=== PATIENT | male | born 1995 | race Caucasian/White ===

== ENCOUNTER 2016-08-26 13:33 | Emergency (ER) | payer BC, OTHER ==
[~2016-08-26] VITALS: Ht 188 cm; Wt 85.9 kg
[2016-08-26 13:35] VITALS: TEMP 37; Ht 188 cm; Wt 85.9 kg
[2016-08-26] MEDS ORDERED: AMPICILLIN/SULBACTAM SOD INJ 3,000 MG in SODIUM CHLORIDE 0.9% 100ML 100 ML IV ONE (14:00)
--- NOTE | 2016-08-26 14:33 | EMERGENCY ROOM VISIT NOTE ---
History Report prepared by Regis: Lindsey Loaiza Under the Supervision of: Dr. Eris Muller M.D. First contact with patient: 13:48 Chief Complaint: OTHER COMPLAINT Stated Complaint: POTENTIAL LYMPHANGITIS History of Present Illness The patient is a 21 year old male who presents to the Emergency Room with complaints of worsening red streaks to his right arm. The patient initially noticed two red spots on his right wrist last week and he was suspicious that they were bug bites. 4 days ago, he developed red streaks that have been extending up his right arm. When he first noticed the bites he felt some irritation to the area but has not had any pain for thh past several days. The patient noticed the bites while he was on spring break in [place]. He does not recall getting bit by anything, but notes that people were complaining of bed bugs on the hotel reviews online. 5 days ago when he was about to come home, he developed watery diarrhea, which is improving. He notes that his bowel movements are almost back to normal. One of his friends who was on the trip with him also had diarrhea. Denies fevers, chills, or other complaints. Source of History: patient Onset: last week Position: arm (right) Quality: other (red streaks) Timing: worsening Associated Symptoms: + diarrhea, No chills, No fevers Review of Systems See HPI for pertinent positives & negatives. A total of 10 systems reviewed and were otherwise negative. Past Medical & Surgical Medical Problems: (1) Conjunctivitis (2) Corneal abrasion Family History No pertinent family history stated. Social History Smoking Status: Never Smoker Alcohol Use: occasionally Marital Status: single Occupation Status: [employer] student Current/Historical Medications Scheduled Amoxicillin & Pot Clavulanate (Augmentin 875-125 mg), 875 MG PO BID Allergies Coded Allergies: No Known Allergies (Unverified , 08/26/16) Physical Exam Vital Signs Date Time Temp Pulse Resp B/P Pulse Ox O2 Delivery O2 Flow Rate FiO2 08/26/16 15:55 61 18 122/81 97 08/26/16 13:35 37.0 90 16 135/74 97 Room Air Physical Exam GENERAL: Patient is in no acute distress. HEENT: No acute trauma, normocephalic atraumatic, mucous membranes moist, no nasal congestion, no scleral icterus. NECK: No stridor, no adenopathy, no meningismus, trachea is midline. LUNGS: Clear to auscultation bilaterally, no wheeze, no rhonchi, breath sounds equal. HEART: Without murmurs gallops or rubs, regular rate and rhythm. ABDOMEN: Soft, nontender, bowel sounds positive, no hernias, no peritonitis. EXTREMITIES: No cyanosis or edema, full range of motion of all the joints without pain or difficulty, no signs for acute trauma. NEUROLOGIC: Oriented x 3, no acute motor or sensory deficits, no focal weakness. SKIN: He has puncture wounds consistent with possible insect bites to the right volar wrist with red streaking up to the elbow consistent with lymphangitis. Medical Decision & Procedures Laboratory Results 08/26/16 14:05 Red Blood Count 5.28, Mean Corpuscular Volume 83.0, Mean Corpuscular Hemoglobin 29.9, Mean Corpuscular Hemoglobin Concent 36.1, Mean Platelet Volume 9.2, Neutrophils (%) (Auto) 69.4, Lymphocytes (%) (Auto) 18.0, Monocytes (%) (Auto) 7.1, Eosinophils (%) (Auto) 4.5, Basophils (%) (Auto) 1.0, Neutrophils # (Auto) 4.19, Lymphocytes # (Auto) 1.09, Monocytes # (Auto) 0.43, Eosinophils # (Auto) 0.27, Basophils # (Auto) 0.06 08/26/16 14:05 Test 08/26/16 14:05 White Blood Count 6.04 K/uL (4.8-10.8) Red Blood Count 5.28 M/uL (4.7-6.1) Hemoglobin 15.8 g/dL (14.0-18.0) Hematocrit 43.8 % (42-52) Mean Corpuscular Volume 83.0 fL (80-100) Mean Corpuscular Hemoglobin 29.9 pg (25-34) Mean Corpuscular Hemoglobin Concent 36.1 g/dl (32-36) Platelet Count 185 K/uL (130-400) Mean Platelet Volume 9.2 fL (7.4-10.4) Neutrophils (%) (Auto) 69.4 % Lymphocytes (%) (Auto) 18.0 % Monocytes (%) (Auto) 7.1 % Eosinophils (%) (Auto) 4.5 % Basophils (%) (Auto) 1.0 % Neutrophils # (Auto) 4.19 K/uL (1.4-6.5) Lymphocytes # (Auto) 1.09 K/uL (1.2-3.4) Monocytes # (Auto) 0.43 K/uL (0.11-0.59) Eosinophils # (Auto) 0.27 K/uL (0-0.5) Basophils # (Auto) 0.06 K/uL (0-0.2) RDW Standard Deviation 37.7 fL (36.4-46.3) RDW Coefficient of Variation 12.6 % (11.5-14.5) Immature Granulocyte % (Auto) 0.0 % Immature Granulocyte # (Auto) 0.00 K/uL (0.00-0.02) Anion Gap 7.0 mmol/L (3-11) Est Creatinine Clear Calc Drug Dose 136.4 ml/min Estimated GFR () 125.4 Estimated GFR (Non- 108.2 BUN/Creatinine Ratio 13.1 (10-20) Calcium Level 8.9 mg/dl (8.5-10.1) Lyme Disease IgG Antibody NEG (NEG) Laboratory results reviewed by me. Medications Administered Medications (Trade) Dose Ordered Sig/Mariana Route Start Time Stop Time Status Last Admin Dose Admin Ampicillin Sodium/ Sulbactam Sodium/ Sodium Chloride (Unasyn Inj/Nss 100ml) 108 ml @ 200 mls/hr ONE ONCE IV 08/26/16 14:00 08/26/16 14:32 DC 08/26/16 14:39 200 MLS/HR ED Course 1349: The patient was evaluated in room B6. A complete history and physical exam was performed. 1400: Ordered Ampicillin Sodium/Sulbactam Sodium 3000 mg/NSS 108 ml @ 200 mls/ hr IV. Medical Decision Differential includes but is not limited to cellulitis, insect bite, lymphangitis, lyme disease, bacteremia. The patient presents with some possible bites on his right wrist. He has some red streaking on his arm that he has noticed. He has no pain, no fever or chills. He was referred here because of the red streaks. He just returned from [place]. The patient was in no distress. Laboratory testing returned showing no leukocytosis, anemia or significant electrolyte abnormality. There was no kidney failure. Blood cultures are pending. Lyme disease testing was equivocal. The patient received IV Unasyn. He is being discharged on Augmentin. He does appear to have a lymphangitis. He can be called back with any positive backup Lyme disease testing. He can follow up for a recheck of his arm in a few days and can return here for worsening symptoms. Impression Primary Impression: Lymphangitis Scribe Attestation The scribe's documentation has been prepared under my direction and personally reviewed by me in its entirety. I confirm that the note above accurately reflects all work, treatment, procedures, and medical decision making performed by me. Departure Information Dispostion Home / Self-Care Prescriptions Amoxicillin & Pot Clavulanate (Augmentin 875-125 mg) 1 Tab Tab 875 MG PO BID for 10 Days, #20 TAB Prov: Eris Muller M.D. 08/26/16 Referrals No Doctor, Assigned (PCP) Patient Instructions My [facility] Additional Instructions augmentin 2x per day for 10 days return for fever or chills return if worsening return here or see outpatient center for a recheck in 48 hours lab testing was ok today
[2016-08-26 14:41] LABS: BASO ABS # 0.06 K/uL (0-0.2); COMPLETE YES; EOS % 4.5 %; HEMATOCRIT 43.8 % (42-52); LYMPH ABS # 1.09 K/uL (1.2-3.4); MEAN CORPUSCULAR HEMOGLOBIN 29.9 pg (25-34); MEAN CORPUSCULAR HGB CONC 36.1 g/dl (32-36); MEAN PLATELET VOLUME 9.2 fL (7.4-10.4); MONO % 7.1 %; NEUT % 69.4 %; PLATELET COUNT 185 K/uL (130-400); RED BLOOD COUNT 5.28 M/uL (4.7-6.1); WHITE BLOOD COUNT 6.04 K/uL (4.8-10.8)
[2016-08-26 15:03] LABS: BUN/CREATININE RATIO 13.1 (10-20); CALCIUM 8.9 mg/dl (8.5-10.1); CREATININE 0.98 mg/dl (0.60-1.40); POTASSIUM 3.7 mmol/L (3.5-5.1)
[2016-08-26] MEDS ORDERED: AMOX875T PO (15:28)
[2016-08-26 15:42] LABS: LYME DISEASE AB IGG NEG (NEG); LYME DISEASE AB IGM EQUIVOCAL (NEG)
[2016-08-26 15:55] VITALS: BP 122/81; PULSE 61; O2SAT 97
[2016-09-01 05:33] LABS: 18KDIGG BAND NONREACTIVE (NONREACTIVE); 23KDIGG BAND NONREACTIVE (NONREACTIVE); 23KDIGM BAND NONREACTIVE (NONREACTIVE); 28KDIGG BAND NONREACTIVE (NONREACTIVE); 30KDIGG BAND NONREACTIVE (NONREACTIVE); 39KDIGG BAND NONREACTIVE (NONREACTIVE); 39KDIGM BAND NONREACTIVE (NONREACTIVE); 41KDIGG BAND REACTIVE (NONREACTIVE); 41KDIGM BAND REACTIVE (NONREACTIVE); 45KDIGG BAND NONREACTIVE (NONREACTIVE); 58KDIGG BAND NONREACTIVE (NONREACTIVE); 66KDIGG BAND NONREACTIVE (NONREACTIVE); 93KDIGG BAND NONREACTIVE (NONREACTIVE)
== END 2016-08-26 15:56 | disposition home or self-care (01) ==
LOC: C.EDB 13:34
DX: I89.1 Lymphangitis (principal)